=== PATIENT | male | born 1980 | race Caucasian/White ===

== ENCOUNTER 2023-09-21 11:41 | Emergency (ER) | payer MEDICAID, SELFPAY ==
[2023-09-21 11:43] VITALS: BP 145/78; PULSE 81; RESP 16; TEMP 36; O2SAT 98
[2023-09-21 11:45] VITALS: BMI 45.7
--- NOTE | 2023-09-21 12:03 | EDS_ITS ---
HPI History of Present Illness Chief Complaint: Back Informant: patient Onset/Context/Timing Onset: Today Context: Sudden Onset Injury: bending Timing: Continuous Quality: Sharp Location: Lumbar and Right Leg Worsened by: improves with Movement Relieved by: - (Laying down) Associated Symptoms Associated Symptoms: Radiation to Right Leg; Negative for Numbness, Tingling, Radiation to Left Leg, Fever, Abdominal Pain, Dysuria, Unable to Ambulate, Unable to Transfer, Urinary Retention, Urinary Incontinence, Constipation or Fecal Incontinence Narrative Narrative: Patient presents with back pain that became worse today. Patient states he has a history of chronic back pain and degenerative disc disease. Patient states he was bending over to put his shoes on today when he felt pain in his back. Patient states the pain radiates down his right leg. Patient describes the pain as sharp. Patient states it is worse with movement. Patient states it is better with lying down. Patient denies any bowel or bladder changes. Patient denies any saddle anesthesia. Patient states he has an appointment with a apprentice painter brush in [place] coming up this week. Patient states that he has had similar symptoms in the past and has been started on steroids which have helped. [facility] Medical History (Updated 09/21/23 @ 12:[address] Isaías Polo DO) Herniated vertebral disc Hypertension Cubital tunnel syndrome on right Carpal tunnel syndrome of right wrist Diabetes Home Medications ?Medication ?Instructions ?Recorded ?Last Taken ?Type aripiprazole 10 mg tablet 10 mg PO DAILY 09/21/23 Unknown History metformin 500 mg tablet,extended 500 mg PO DAILY 09/21/23 Unknown History release 24 hr prednisone 20 mg tablet 60 mg (3 x 20 mg) PO DAILY #12 09/21/23 Unknown Rx TABLETS Allergy/AdvReac Type Severity Reaction Status Date / Time peanut (peanuts) AdvReac Mild NEEDS Verified 09/21/23 11:55 FOLLOW-UP varenicline (From Chantix) AdvReac Mild Other Verified 09/21/23 11:55 Surgical History (Updated 09/21/23 @ 12:[address] Isaías Polo DO) S/P cubital tunnel release History of carpal tunnel surgery of right wrist Hx of arthroscopy of knee History of appendectomy Social History Smoking Status: Current every day smoker tobacco type: e-cigarettes ROS ROS ED Constitutional Constitutional ED: Denies chills or fever(s) Eyes Eyes: Denies blurry vision or change in vision ENT ENT ED: Denies rhinorrhea or sore throat Cardiovascular Cardiovascular: Denies chest pain or palpitations Respiratory/Chest Respiratory/Chest: Denies cough or dyspnea Gastrointestinal Gastrointestinal: Denies nausea or vomiting Genitourinary Genitourinary ED: Denies dysuria or hematuria Musculoskeletal Musculoskeletal: Reports back pain and neck pain Integumentary Denies abscess or rash Neurologic Neurologic: Denies headache(s) or weakness Allergic/Immunologic Allergic/Immunologic ED: Denies mouth swelling or urticaria EXAM Physical Exam Const Vital Signs: 09/21/23 11:43 Temperature 96.8 F L Temperature Source Temporal Pulse Rate 81 Respiratory Rate 16 Blood Pressure 145/78 H Blood Pressure Mean 100 Pulse Ox 98 Oxygen Delivery Method Room Air Positive well nourished and well developed General Appearance ED: well developed and NAD HEENT Reports moist mucous membranes Neck supple Back/Spine Back/Spine Narrative: There is tenderness over the right lumbar paraspinal muscles and sciatic notch. There is no midline tenderness. There is no edema or ecchymosis. There is no bony crepitance or step-off. Range of motion of the lumbar spine was limited in all motions secondary to pain. Strength is 5/5 bilaterally in the lower extremities. There are no sensory deficits noted. Deep tendon reflexes are 2/4 bilaterally in the lower extremities. Lumbar Spine / Lower Back: ROM limited Extremity normal to inspection and no clubbing, cyanosis or edema Neuro oriented x3 and no sensory deficits noted Sensorium / Orientation: alert Motor Exam: strength 5/5 throughout Deep Tendon Reflexes: Rt Patellar (L4): 2+, Lt Patellar (L4): 2+, Rt Ankle (S1): 2+ and Lt Ankle (S1): 2+ Deep Tendon Reflexes Back: Rt Patellar (L4): 2+, Lt Patellar (L4): 2+, Rt Ankle (S1): 2+ and Lt Ankle (S1): 2+ Psych mental status grossly normal MDM MDM MDM Narrative Medical decision making narrative: Nicotine cessation was discussed. Patient was advised that this is most likely a lumbosacral strain and sciatica. I do not feel there is any indication for x- rays at this time. Patient is agreeable with this. Patient was given a prescription for a short course of prednisone. Patient was instructed to follow-up with his pain management physician in [place]. Patient was instructed to return if worse in any way. Patient understood and was agreeable with the plan. All questions were answered. Discharge Plan Triage Chief Complaint: Back ED Provider: Isaías Polo Dx/Rx/DC Orders Clinical Impression: Acute lumbosacral myofascial strain, Sciatica, Nicotine use Instructions: ED Back Sprain/Strain, ED Sciatica Prescriptions: New prednisone 20 mg tablet 60 mg PO DAILY Qty: 12 0RF No Action metformin 500 mg tablet extended release 24 hr 500 mg PO DAILY aripiprazole 10 mg tablet 10 mg PO DAILY [facility] Provider: [facility],Out of Referrals: [facility],Out of [Primary Care Provider] - 5-7 Days Print Language: Bahamian Disposition Disposition: Home, Self Care
[2023-09-21] MEDS: predniSONE 20 MG Tablet 60 MG PO (12:15)
== END 2023-09-21 12:21 | disposition home or self-care (01) ==
PROVIDERS: Emergency Provider Emergency Medicine; Visit Provider Emergency Medicine
DX: S39.012A Strain of muscle, fascia and tendon of lower back, initial encounter (principal); E11.9 Type 2 diabetes mellitus without complications; I10 Essential (primary) hypertension; M54.30 Sciatica, unspecified side; Z79.84 Long term (current) use of oral hypoglycemic drugs; F17.290 Nicotine dependence, other tobacco product, uncomplicated; X50.1XXA Overexertion from prolonged static or awkward postures, initial encounter; Y93.89 Activity, other specified
CPT/HCPCS: 99282

== ENCOUNTER 2024-03-29 11:19 | Emergency (ER) | payer MEDICAID, SELFPAY ==
[2024-03-29 11:19] VITALS: BP 154/107; PULSE 84; RESP 18; TEMP 36.6; O2SAT 97; BMI 47.0
--- NOTE | 2024-03-29 12:46 | ED.VIS.BACK ---
HPI History of Present Illness Chief Complaint: Back Informant: patient Onset/Context/Timing Onset: Days Timing: Continuous Quality: Sharp Location: Lumbar, Buttock and Left Leg Current Severity: Moderate Maximum Severity: Moderate Worsened by: improves with Movement Relieved by: Remaining Still Associated Symptoms Associated Symptoms: Radiation to Left Leg; Negative for Numbness, Tingling, Radiation to Right Leg, Fever, Abdominal Pain, Dysuria, Unable to Ambulate, Unable to Transfer, Urinary Retention, Urinary Incontinence, Constipation or Fecal Incontinence Narrative Narrative: 43-year-old male chronic history of degenerative disc disease in his back with intermittent radiculopathy. Is seeing pain management for the past has had spinal injections but none recently. None in well over a month. Recently moved to [place] does not have a primary care physician here nor is he seeing a specialist employee labor relations recently. States he has acute on chronic low back pain rating on his left buttock and left hamstring. No new weakness. No bowel or bladder incontinence. No fever. No recent fall or trauma. He has never had back surgery. Prior similar symptoms: Yes Recent Illness/Hospitalization: No [facility] Medical History Herniated vertebral disc Hypertension Cubital tunnel syndrome on right Carpal tunnel syndrome of right wrist Diabetes Home Medications ?Medication ?Instructions ?Recorded ?Last Taken ?Type aripiprazole 10 mg tablet 10 mg PO DAILY 09/21/23 Unknown History metformin 500 mg tablet,extended 500 mg PO DAILY 09/21/23 Unknown History release 24 hr prednisone 20 mg tablet 60 mg (3 x 20 mg) PO DAILY #12 09/21/23 Unknown Rx TABLETS prednisone 20 mg tablet 40 mg (2 x 20 mg) PO DAILY 10 days 03/29/24 Unknown Rx #20 tabs Allergy/AdvReac Type Severity Reaction Status Date / Time peanut (peanuts) AdvReac Mild NEEDS Verified 03/29/24 11:19 FOLLOW-UP varenicline (From Chantix) AdvReac Mild Other Verified 03/29/24 11:19 Surgical History S/P cubital tunnel release History of carpal tunnel surgery of right wrist Hx of arthroscopy of knee History of appendectomy Social History Smoking Status: Current every day smoker tobacco type: e-cigarettes ROS ROS ED ROS Narrative No recent illness. Low back pain. Acute on chronic. Constitutional Constitutional ED: Denies chills or fever(s) Eyes Eyes: Denies blurry vision ENT ENT ED: Denies ear pain Cardiovascular Cardiovascular: Denies chest pain Respiratory/Chest Respiratory/Chest: Denies dyspnea Gastrointestinal Gastrointestinal: Denies abdominal pain Genitourinary Genitourinary ED: Denies dysuria or hematuria Musculoskeletal Musculoskeletal: Reports back pain; Denies arthralgias Integumentary Denies abscess or Abrasions Neurologic Neurologic: Denies headache(s) Psychiatric Psychiatric: Denies anxiety or depression Endocrine Endocrinology: Denies cold intolerance or heat intolerance Hematologic/Lymphatic Hematologic/Lymphatic: Denies easy bleeding, easy bruising or lymphadenopathy Allergic/Immunologic Allergic/Immunologic ED: Denies mouth swelling, tongue swelling or urticaria EXAM Physical Exam Narrative Exam Narrative: Well-appearing 43-year-old male. Vital signs are stable afebrile. This is a very large male he is listed as 6 3 and about 375 pounds. He sitting upright in bed. He is in no distress. H EENT exam pupils round react light. Moist mucous membranes. Neck nontender no lymphadenopathy. Lungs clear to auscultation bilaterally. Heart regular rate rhythm rate about 80 no murmur. Chest wall ribs nontender. Abdomen soft nontender. Normal bowel sounds without peritoneal signs. Patient is moving all 4 extremities. He has 5 out of 5 strength on his right leg 4 out of 5 on the left. He said intermittently he has weakness in 1 leg or the other that is not new. He is able to do dorsi and plantarflexion with either leg. Left is slightly weaker than the right. Back exam he has tenderness over his left SI joint. He has a positive straight leg raise test on the left. Negative on the right. He has normal medial thigh sensation. No cauda equina. No saddle anesthesia. He is able to stand and ambulate without difficulty. The spine itself is nontender there is no signs of trauma. Neurologically is awake and alert. He has mild weakness in his left leg compared to his right again that is chronic. Const Vital Signs: 03/29/24 11:19 Temperature 97.8 F Temperature Source Oral Pulse Rate 84 Respiratory Rate 18 Blood Pressure 154/107 H Blood Pressure Mean 122 Pulse Ox 97 Oxygen Delivery Method Room Air Positive well nourished and well developed; Negative for cachectic, contractures or unkempt General Appearance ED: well developed and NAD; Negative for unkempt, cachectic or contractures Nutritional Appearance: Negative for cachectic HEENT Reports moist mucous membranes Negative for trauma or tenderness Eyes PERRL and EOMs intact bilaterally General Eye ED: Negative for pale conjunctiva or scleral icterus Neck no lymphadenopathy, supple and no JVD General: Negative for tenderness Thyroid: Negative for other Resp normal respiratory effort and clear to auscultation bilaterally Effort and Inspection: Negative for pain with movement Auscultation: Negative for rales, rhonchi, wheezes or diminished lung sounds Cardio regular rate, regular rhythm, S1 normal heart sound, S2 normal heart sound and no murmurs Rate: Negative for bradycardia or tachycardic Rhythm: Negative for abnormal rhythm GI normal to inspection, nondistended, normoactive bowel sounds, soft to palpation, non-tender, non-distended and no masses Palpation: Negative for tender, guarding or rebound tenderness present Back/Spine normal to inspection and no thoracic nor lumbar tenderness General Back: Negative for CVA tenderness Cervical Spine: Negative for cervical spine tenderness Thoracic Spine / Upper Back: Negative for paraspinal muscle tenderness Lumbar Spine / Lower Back: straight leg raise positive - left Extremity normal to inspection General Extremety ED: Negative for tenderness or other findings General Extremity: Negative for other findings Neuro oriented x3 and no sensory deficits noted Neuro Narrative: 5 out of 5 muscle strength in both upper extremities and right leg pain 4 out of 5 on the left. Positive straight leg raise on the left. Patient states this is chronic he has weakness in 1 leg or the other from time to time. Does not specifically new or different. No cauda equina. No saddle anesthesia. He can stand and walk and can lift either leg off the bed. Sensorium / Orientation: alert; Negative for confused, lethargic or stuporous Motor Exam: strength abnormal Psych mental status grossly normal Appearance: Negative for unkempt Attitude: No agitated Mood & Affect: Negative for depressed, sad or tearful Skin no rashes or lesions noted and no wounds General Skin Exam: Negative for jaundice Lesions: No lesion noted Rashes: No rashes noted Trauma: Negative for abrasion or puncture Wounds: Negative for wounds noted MDM MDM MDM Narrative Medical decision making narrative: 43-year-old male with acute on chronic low back pain history of degenerative disc disease. He specifically stated he did not want anything for pain. He did not want narcotic pain meds. He will be placed on prednisone 40 mg a day for 10 days. Referred to orthopedic spine for further evaluation. He does not need an emergent MRI today. He may need one as an outpatient if this does not improve. He knows to return if bowel or bladder incontinence or retention, worsening pain or fever. Worsening weakness. History & Record Review Discussion w/independent historian: Patient Discharge Plan Triage Chief Complaint: Back ED Provider: Jaycob Mays Dx/Rx/DC Orders Clinical Impression: Back pain, Degenerative disc disease, Chronic lumbar radiculopathy Instructions: ED Back Pain (Acute or Chronic) Prescriptions: New prednisone 20 mg tablet 40 mg PO DAILY 10 Days Qty: 20 0RF No Action metformin 500 mg tablet extended release 24 hr 500 mg PO DAILY aripiprazole 10 mg tablet 10 mg PO DAILY prednisone 20 mg tablet 60 mg PO DAILY Qty: 12 0RF Primary Care Provider: Care Physician,No Primary Referrals: Narinder Loera MD [Med Staff - Active Staff] - As soon as possible Care Physician,No Primary [Primary Care Provider] - Activity Restrictions/Additional Instructions: Continue taking the steroids 40 mg a day for the next 10 days. Tylenol and/or Motrin for pain. Call the orthopedic specialist employee labor relations office Dr. Loera to get set up for an appointment soon as possible. Call their office today to make an appointment. Return if increasing pain, fever, bowel or bladder incontinence where you cannot stop from urinating or you are unable to urinate or have a bowel movement. This appears to be acute on chronic lower back disc disease causing lower back pain with radiation to your left leg. If not improving it may need an MRI. Watch her blood sugars closely. The steroid may increase your blood sugars. Print Language: Tamazight Disposition Disposition: Home, Self Care
== END 2024-03-29 13:05 | disposition home or self-care (01) ==
PROVIDERS: Emergency Provider Emergency Medicine; Visit Provider Emergency Medicine
DX: G89.29 Other chronic pain (principal); E11.9 Type 2 diabetes mellitus without complications; M51.16 Intervertebral disc disorders with radiculopathy, lumbar region; I10 Essential (primary) hypertension; Z79.84 Long term (current) use of oral hypoglycemic drugs; Z90.49 Acquired absence of other specified parts of digestive tract; F17.290 Nicotine dependence, other tobacco product, uncomplicated; M54.50 Low back pain, unspecified
CPT/HCPCS: 99282

== ENCOUNTER 2024-06-21 17:30 | Outpatient (RCR) | payer MEDICAID, SELFPAY ==
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
--- NOTE | 2024-11-15 17:53 | HP.PT.NRP ---
Patient Information Patient Information: MONICA GUTIERREZ was seen in my office for initial evaluation on 05/25/24. The following Plan of Care was established for this patient: POC Established Initial Frequency: 2x /Week Initial Duration: 4 Weeks Anticipated Interventions Patient/Client Instruction: Educate patient on: Condition and Plan of Care For the Purpose of:: To decrease pain, To increase ROM, To improve muscle performance and motor function, To improve ability to perform ADL's, To increase tolerance to activity/condition/position, To improve ability of physical actions for home/community/work/leisure, To improve health of tissue, To decrease soft tissue restriction, To increase flexibility/ROM and To improve balance Therapeutic Exercise to Include: Strength training, Body mechanics, Postural training, Flexibilty training and Dynamic Lumbar Stabilization For the Purpose of:: To decrease pain, To increase ROM, To improve muscle performance and motor function, To improve ability to perform ADL's, To increase tolerance to activity/condition/position, To improve ability of physical actions for home/community/work/leisure, To improve health of tissue, To decrease soft tissue restriction, To increase flexibility/ROM and To reduce risk of recurrence TENS: Yes IF ES: Yes Cryotherapy (ice pack, ice massage): Yes Thermo therapy (hot pack): Yes Ultrasound (thermal/non thermal): Yes For the Purpose of:: To decrease pain, To increase ROM, To improve nutrient delivery to tissue, To increase oxygenation perfusion, To improve health of tissue and To decrease soft tissue restriction Last Seen Last Seen: This patient was last seen in our office . Pertinent comments regarding their Physical therapy will appear below: Patient was seen for PT for lumbar radiculopathy with Aquatic PT thus is d/c At this point I will be discontinuing this patient from physical therapy. I would be happy to see this patient again in the future if found appropriate by the physician. Thank you! Lencho Eaton, PT, Cert MDT, OCS Balance/Gait/Functional tests Balance/Special Test Scores Oswestry Low Back Score: 32
== END 2024-06-21 19:00 | disposition home or self-care (01) ==
LOC: PT 17:30
PROVIDERS: Referring Provider Anesthesiology; Visit Provider Anesthesiology
DX: M54.16 Radiculopathy, lumbar region (principal)
CPT/HCPCS: 97113; 97162